=== PATIENT | male | born 1950 | race Caucasian/White ===

== ENCOUNTER 2019-04-03 17:10 | Inpatient (IN) | payer BC, MEDICARE ==
--- NOTE | 2019-04-03 17:33 | ED ---
Complex/Multi-Sys Presentation - HPI Summary HPI Summary: This pt is a 69 y/o male presenting to [facility] for low hemoglobin level today. Pt reports he had blood work done as an outpatient today ordered by Dr. Vegas in [place]. He has been under Dr. Vegas's care for 25 years now. He notes he has been feeling SOB, lightheaded, dizzy. Pt states he has had these symptoms become steadily worse over the past several months. He reports melena for the past couple of weeks, swelling in LE, constipation, urinary frequency. Pt notes he has been sleeping in a chair for a couple of months now. Denies chest pain/pressure/tightness. Denies fever, chills, erythema of eyes, sore throat, cough, abd pain, nausea, vomiting, dysuria, hematuria, myalgia, rash. Pt notes she saw Dr. Vegas 2 weeks ago and was told his hemoglobin was low but not to the point where he would need a transfusion. He is on Xarelto and diuretics. Pt has a holter monitor. - History Of Current Complaint Chief Complaint: EDWeakness Time Seen by Provider: 04/03/19 17:27 Hx Obtained From: Patient Onset/Duration: Lasting Weeks, Still Present Timing: Weeks Severity Currently: Moderate Location: Negative Aggravating Factor(s): nothing Alleviating Factor(s): nothing Associated Signs And Symptoms: Positive: Dizziness, SOB, Melena, Other - POSITIVE: lightheadedness, constipation, leg swelling,. Negative: Cough, Chest Pain, Nausea, Vomiting, Diarrhea, Abdominal Pain, Fever - Allergies/Home Medications Allergies/Adverse Reactions: Allergies Allergy/AdvReac Type Severity Reaction Status Date / Time No Known Allergies Allergy Verified 11/27/13 14:28 Home Medications: Home Medications Aspirin EC TAB* [Ecotrin EC Low Dose 81 MG*] 81 mg PO DAILY 04/03/19 [History Confirmed 04/03/19] Cholecalciferol TAB* [Vitamin D TAB*] 2,000 units PO DAILY 04/03/19 [History Confirmed 04/03/19] Insulin GLARGINE(*) [Lantus(*)] 35 units SUBCUT BID 04/03/19 [History Confirmed 04/03/19] Insulin ISOPH/REG 70/30 (*) [HumuLIN 70/30 (*)] 35 units SUBCUT ONCE 04/03/19 [ History Confirmed 04/03/19] Insulin LISPRO* [HumaLOG*] 35 units SUBCUT BID 04/03/19 [History Confirmed 04/03] Levothyroxine TAB* [Synthroid TAB*] 200 mcg PO DAILY 04/03/19 [History Confirmed 04/03/19] [place]-3 Fatty Acids/Fish Oil [[place] 3] 1 cap PO DAILY 04/03/19 [History Confirmed 04/03/19] Potassium Chlor TAB* [Klor Con ER TAB*] 20 meq PO DAILY 04/03/19 [History Confirmed 04/03/19] Rivaroxaban TAB(*) [Xarelto 20 mg] 20 mg PO DAILY 04/03/19 [History Confirmed ] metFORMIN* [Glucophage 500 MG TAB *] 500 mg PO DAILY 04/03/19 [History Confirmed 04/03/19] PMH/Surg Hx/FS Hx/Imm Hx Endocrine/Hematology History: Reports: Hx Diabetes Cardiovascular History: Reports: Hx Hypertension, Other Cardiovascular Problems/ Disorders - PATIENT HAS HEART MONITOR, atrial flutter, heart murmur Respiratory History: Denies: Hx Asthma Infectious Disease History: No Infectious Disease History: Denies: Traveled Outside the [place] in Last 30 Days - Family History Known Family History: Positive: Hypertension - Social History Alcohol Use: None Substance Use Type: Reports: None Smoking Status (MU): Former Smoker Review of Systems Negative: Fever, Chills Negative: Erythema Negative: Sore Throat Negative: Chest Pain Positive: Shortness Of Breath. Negative: Cough Gastrointestinal: Other - POSITIVE: melena, constipation Negative: Abdominal Pain, Vomiting, Nausea Positive: frequency. Negative: dysuria, hematuria Positive: Edema - legs. Negative: Myalgia Negative: Rash Neurological: Other - POSITIVE: dizziness, lightheadedness All Other Systems Reviewed And Are Negative: Yes Physical Exam - Summary Physical Exam Summary: Constitutional: Well-developed, Well-nourished, Alert. (-) Distressed Skin: Warm, Dry. Skin discoloration from heating pad on his back. HENT: Normocephalic; Atraumatic Eyes: Conjunctiva normal Neck: Musculoskeletal ROM normal neck. (-) JVD, (-) Stridor, (-) Tracheal deviation Cardio: Rhythm regular, rate normal, Heart sounds normal; Intact distal pulses; The pedal pulses are 2+ and symmetric. Radial pulses are 2+ and symmetric. (-) Murmur Pulmonary/Chest wall: Patient is tachypneic. (-) Respiratory distress, (-) Wheezes, (-) Rales Abd: Soft, (-) tenderness, (-) Distension, (-) Guarding, (-) Rebound Rectal exam: Lincoln Gillette RN, present as marketing performance analyst. Melena. Musculoskeletal: (-) Edema Lymph: (-) Cervical adenopathy Neuro: Alert, Oriented x3 Psych: Mood and affect Normal Triage Information Reviewed: Yes Vital Signs On Initial Exam: Initial Vitals Temp Pulse Resp BP Pulse Ox 98.4 F 67 18 141/71 97 04/03/19 17:12 04/03/19 17:12 04/03/19 17:12 04/03/19 17:12 04/03/19 17:12 Vital Signs Reviewed: Yes Diagnostics - Vital Signs Vital Signs Temp Pulse Resp BP Pulse Ox 04/03/19 17:12 98.4 F 67 18 141/71 97 - Laboratory Result Diagrams: 04/03/19 17:39 04/03/19 17:39 Lab Statement: Any lab studies that have been ordered have been reviewed, and results considered in the medical decision making process. - Radiology Chest XR Radiology Interpretation Completed By: Radiologist Summary of Radiographic Findings: IMPRESSION: Suggestion of mild pulmonary vascular congestion. Dr. Bauer has reviewed this report. - EKG 17:32 Cardiac Rate: NL - at 68 bpm EKG Rhythm: Sinus Rhythm Summary of EKG Findings: RBBB. No STEMI. Complex Multi-Symp Course/Dx Assessment/Plan: Pt is a 69 y/o male, with hx of aflutter on xarelto, presenting to [facility] for low hemoglobin level resulted after outpt blood work today. He notes he has been feeling SOB, lightheaded, dizzy. Pt states he has had these symptoms become steadily worse over the past several months. He reports melena for the past couple of weeks, swelling in LE, constipation, urinary frequency. Pt notes he has been sleeping in a chair for a couple of months now. Blood work done as an outpatient at 12:00 today shows hemaglobin of 6.3, hematocrit of 19, potassium of 5.3, BUN of 45, creatinine of 2.06, glucose of 201, troponin of 0.04, BNP of 1290. Test results in the ED shows hemoglobin of 6.6, hematocrit of 19, potassium of 5.1, BUN is 47, creatinine of 2.14, troponin of 0.04. Stool occult blood is positive. Chest XR impression: Suggestion of mild pulmonary vascular congestion. In the ED course the pt received lasix, protonix, 2 bags of packed red blood cells. Discussed with TOBIAS Ricketts, who will consult for the pt. Discussed pt care with Dr. Anne, hospitalist, who accepted the pt for admission. - Diagnoses Provider Diagnoses: Symptomatic anemia, Upper GI bleed - Physician Notifications Discussed Care Of Patient With: Julio Cesar Diego Time Discussed With Above Provider: 17:47 Instructed by Provider To: Other - Discussed with TOBIAS Ricketts, who will consult for the pt. [17:50] Discussed pt care with Dr. Anne, hospitalist, who accepted the pt for admission. - Critical Care Time Critical Care Time: 30-74 min Discharge - Sign-Out/Discharge Documenting (check all that apply): Patient Departure - Admit to [facility] Patient Received Moderate/Deep Sedation with Procedure: No - Discharge Plan Condition: Stable Disposition: ADMITTED TO [facility] Referrals: Kayla Taveras MD [Primary Care Provider] - - Attestation Statements Document Initiated by Scribe: Yes Documenting Scribe: Marlyn Ying Provider For Whom Scribe is Documenting (Include Credential): Guy Bauer MD Scribe Attestation: Marlyn Falk, scribed for Guy Bauer MD on 04/03/19 at 2024. Status of Scribe Document: Ready
[2019-04-03] MEDS ORDERED: Pantoprazole* 80 mg IN NS 80 MG/250 ML BAG IV ONE (17:46)
[2019-04-03] MEDS ORDERED: Pantoprazole IV* 40 MG IV ONE (17:46)
[2019-04-03] MEDS ORDERED: Furosemide IV* 10 MG/ML VIAL (40 MG) IV SLOW PU ONE (17:49)
[2019-04-03 18:04] LABS: ABS Eosinophils 0.1 10^3/ul (0-0.6); ABS Lymphocytes 1.5 10^3/ul (1.0-4.8); ABS Monocytes 0.6 10^3/ul (0-0.8); ABS Neutrophils 3.6 10^3/ul (1.5-7.7); Eosinophil % 2.5 %; Hematocrit 19 % (42-52); Hemoglobin 6.6 g/dL (14.0-18.0); Lymphocyte % 25.2 %; Mean Corpuscular HGB Conc 34 g/dL (31-36); Mean Corpuscular Hemoglobin 30 pg (27-31); Mean Corpuscular Volume 87 fL (80-94); Mean Platelet Volume 8.3 fL (7.4-10.4); Nucleated Red Blood Cells % 0.1; Platelet Count 186 10^3/uL (150-450); Red Blood Count 2.22 10^6 /uL (4.18-5.48); Red Cell Distribution Width 18 % (10-15); White Blood Count 5.9 10^3/uL (3.5-10.8)
[2019-04-03 18:10] LABS: ALT 14 U/L (7-52); AST 13 U/L (13-39); Albumin 4.2 g/dL (3.2-5.2); Albumin/Globulin Ratio 1.7 (1-3); Alkaline Phosphatase 71 U/L (34-104); Blood Urea Nitrogen 47 mg/dL (6-24); CO2 Carbon Dioxide 24 mmol/L (22-32); Calcium 9.1 mg/dL (8.6-10.3); Chloride 109 mmol/L (101-111); EGFR Non-African American 30.6 (>60); Globulin 2.5 g/dL (2-4); Glucose 138 mg/dL (70-100); Sodium 139 mmol/L (135-145); Total Protein 6.7 g/dL (6.4-8.9)
[2019-04-03 18:14] LABS: Anion Gap 6 mmol/L (2-11); Potassium 5.1 mmol/L (3.5-5.0); Troponin I 0.04 ng/mL (<0.04)
--- OUTSIDE RECORDS SUMMARY | 2019-04-03 19:03 | XMS REPORT | Continuity of Care Document ---
:1950 External Reference #:[id number] Author Name Gina Dunne Care Team Providers Name Role Phone Kayla Taveras M.D. Primary Care Physician Unavailable Payers Date Identification Numbers Payment Provider Subscriber Policy Number: [id number] BS [employer]ets Brock Galloway [place] PayID: [id number] [address] [address] [place] [address] Effective: 2009 Policy Number: [id number] [employer]ets Brock Galloway [place] Expires: 2012 PayID: [id number] [address] [address] [place] [address] Problems Active Problems Provider Date Type 2 diabetes mellitus Sharmila Bojorquez M.D. Onset: 11/01/2011 Benign essential hypertension Sharmila Bojorquez M.D. Onset: 11/01/2011 Hypothyroidism Sharmila Bojorquez M.D. Onset: 11/01/2011 Social History Type Date Description Comments Sex Unknown Tobacco Use Start: Unknown End: Unknown Patient is a former smoker Smoking Status Reviewed: 03/27/19 Patient is a former smoker Allergies, Adverse Reactions, Alerts Description No Known Drug Allergies Medications Active Medications SIG Qnty Indications Ordering Provider Date Xarelto 1 by mouth Unknown 20mg Tablets every day Carvedilol 1 tab by mouth Unknown 25mg Tablets twice a day Vitamin D2 take 50,000 Unknown 2000Unit units once a Tablets week Torsemide 60tabs Unknown 20mg Tablets Klor-Con 2 po qd 30units Unknown 20Meq Packet Lantus 35 units Am and 6Vials Unknown 100Unit/ML PM Solution Novolog 35 U sc once a 1Bottle Unknown Solution day Multi Vitamin Mens 1 po qd Unknown Tablets Aspirin 1 po qd Unknown 81mg Tablets Atorvastatin Calcium 1 po qd 30tabs Unknown 40mg Tablets Metformin HCL 1 po bid 60tabs Unknown 500mg Tablets Levoxyl .2MG Unknown Ramipril 1 po bid 30caps Unknown 10mg Capsules History Medications Lovaza 1gm 1 po qd 180caps Unknown - 03/26 Capsules Atenolol 50mg 1 po qd 90tabs Unknown - Tablets Amlodipine Besylate 1 po qd 30tabs Unknown - 03/26/2019 10mg Tablets Hydrochlorothiazide qam Unknown - 08/07/2013 50mg Tablets Immunizations CPT Code Status Date Vaccine Lot # [id number] Given 08/07/2013 Zoster (Zostavax) [id number] Vital Signs Date Vital Result Comment 03/27/2019 8:32am Height 71.75 inches 5'11.75" Weight 263.50 lb Heart Rate 70 /min BP Systolic 110 mmHg BP Diastolic 50 mmHg Body Temperature 97.8 F O2 % BldC Oximetry 98 % BMI (Body Mass Index) 36.0 kg/m2 08/07/2013 11:03am Weight 252.00 lb Heart Rate 73 /min BP Systolic Sitting 142 mmHg BP Diastolic Sitting 72 mmHg 11/01/2011 1:55pm Height 72.50 inches 6'0.50" Weight 245.00 lb Heart Rate 60 /min BP Systolic Sitting 134 mmHg BP Diastolic Sitting 60 mmHg BMI (Body Mass Index) 32.8 kg/m2 Results Test Date Facility Test Result H/L Range Note Surgical 12/15/2013 [facility] S RUN DATE: [address] 12/16/ <[place] [address] NOTE> [phone] Laboratory test 09/18/2013 [facility] Blood Urea 29 mg/dL High 6-[address] [place] [address] [phone] Creatinine 09/18/2013 [facility] Creatinine 1.10 mg/dL 0.50- 1.[address] [place] [address] [phone] Egfr Non- 67.2 >60 Egfr 86.4 >60 2 Laboratory test 09/18/2013 [facility] PSA Diagnostic 1.041 ng/ mL 0-4.0 [address] [place] [address] [phone] Creatinine 09/18/2013 [facility] Urine Random 92.1 mg/dL Clearance [address] [place] [address] [phone] Creatinine 1.2 mg/dL 0.5-1.4 Creatinine Clearance 125 mL/min 97-137 Urine Collection Time 24 Urine Total Volume 2350 mL Total Protein 24HR 09/18/2013 [facility] Urine Random Total 58 mg/dL Urine [address] [address] [phone] Urine Total Protein/24HR 1363 mg/24Hr High 0-165 Basic Metabolic Panel 03/19/2013 [facility] Sodium 138 mmol/L 133-145 [address] [place] [address] [phone] Potassium 3.9 mmol/L 3.5-5.0 Chloride 101 mmol/L 101-111 Co2 Carbon Dioxide 31.0 mmol/L 22-32 Anion Gap 6.0 mmol/L 2-11 Glucose 259 mg/dL High 70-100 Blood Urea Nitrogen 24 mg/dL 6-24 Creatinine 1.20 mg/dL 0.50-1.40 BUN/Creatinine Ratio 20.0 8-20 Calcium 9.6 mg/dL 8.1-9.9 Egfr Non- 60.8 >60 Egfr 78.1 >60 4 Basic Metabolic Panel 11/12/2012 [facility] Sodium 139 mmol/L 133-[address] [place] [address] [phone] Potassium 3.7 mmol/L 3.5-5.0 Chloride 101 mmol/L 101-111 Co2 Carbon Dioxide 33.0 mmol/L High 22-32 Anion Gap 5.0 mmol/L 2-11 Glucose 147 mg/dL High 70-100 Blood Urea Nitrogen 22 mg/dL 6-24 Creatinine 1.00 mg/dL 0.50-1.40 BUN/Creatinine Ratio 22.0 High 8-20 Calcium 9.3 mg/dL 8.1-9.9 Egfr Non- 75.2 >60 Egfr 96.7 >60 5 Laboratory test 02/05/2012 [facility] Thyroxine Free 1.10 ng/dL 0.61-1.24 finding [facility] [place] [address] [phone] TSH 3.37 MIU/ML 0.34-5.60 Laboratory test finding 11/01/2011 [facility] PSA 0.94 NG/ML 0-4 6 [facility] [place] [address] [phone] 1 RUN DATE: 12/16/13 [facility] LAB LIVE PAGE 1 RUN TIME: 4920 [facility] [address] [place], [place] [address] Specimen Inquiry Name: BROCK BOBBY : [address]: Julio Cesar Diego MD Acct: [id number] Unit: [id number] AGE: 63 Location: ENDO Re12/15/13 SEX: M Status: REG REF SPEC: [id number] SHAMIKA: 12/15/13- SUBM DR: Julio Cesar Diego MD REQ: [id number] RECD: 12/15/13-1420 STATUS: ROHITH LOWE DR: Sharmila Bojorquez MD _ ORDERED: LEVEL IV FINAL DIAGNOSIS Colon, rectum, proximal at 15 cm., biopsy: Hyperplastic polyp. CLINICAL HISTORY Constipation for screening colonoscopy. No symptoms, insulin dependent diabetes mellitus. Abdomen negative, rectal negative. POST-OPERATIVE DIAGNOSIS Screening colonoscopy to cecum, prep poor, seeds, sludge. 1. Rectosig polyp, follow up in three years. GROSS DESCRIPTION The specimen is received in formalin labeled Brock Bobby, Proximal Rectum Polyp at 15 cm. and consists of a 0.5 x 0.4 x 0.3 cm. hernández-white, polypoid, soft tissue fragment. Submitted entirely, one cassette. Signed (signature on file) Saran Polk MD [id number] END OF REPORT * ML=Testing performed at Main Lab DEPARTMENT OF PATHOLOGY, [address] [place] [address] Saran Polk M.D. Director [facility] Permit #[id number] 2 Because ethnic data is not always readily available, this report includes an eGFR for both -Americans and non- Americans. The National Kidney Disease Education Program (NKDEP) does not endorse the use of the MDRD equation for patients that are not between the ages of 18 and 70, are , have extremes of body size, muscle mass, or nutritional status, or are non- or non-. According to the National Kidney Foundation, irrespective of diagnosis, the stage of the disease is based on the level of kidney function: Stage Description GFR(mL/min/1.73 m(2)) 1 Kidney damage with normal or decreased GFR 90 2 Kidney damage with mild decrease in GFR 60-89 3 Moderate decrease in GFR 30-59 4 Severe decrease in GFR 15-29 5 Kidney failure <15 (or dialysis) 3 Serum levels of PSA measured using the [employer] [place] DXI Hybritech immunoassay should not be interpreted as absolute evidence of the presence or absence of disease. The PSA value should be used in conjunction with other pertinent clinical diagnostic procedures. The values obtained with different assay methods or kits cannot be used interchangeably. 4 Because ethnic data is not always readily available, this report includes an eGFR for both -Americans and non- Americans. The National Kidney Disease Education Program (NKDEP) does not endorse the use of the MDRD equation for patients that are not between the ages of 18 and 70, are , have extremes of body size, muscle mass, or nutritional status, or are non- or non-. According to the National Kidney Foundation, irrespective of diagnosis, the stage of the disease is based on the level of kidney function: Stage Description GFR(mL/min/1.73 m(2)) 1 Kidney damage with normal or decreased GFR 90 2 Kidney damage with mild decrease in GFR 60-89 3 Moderate decrease in GFR 30-59 4 Severe decrease in GFR 15-29 5 Kidney failure <15 (or dialysis) 5 Because ethnic data is not always readily available, this report includes an eGFR for both -Americans and non- Americans. The National Kidney Disease Education Program (NKDEP) does not endorse the use of the MDRD equation for patients that are not between the ages of 18 and 70, are , have extremes of body size, muscle mass, or nutritional status, or are non- or non-. According to the National Kidney Foundation, irrespective of diagnosis, the stage of the disease is based on the level of kidney function: Stage Description GFR(mL/min/1.73 m(2)) 1 Kidney damage with normal or decreased GFR 90 2 Kidney damage with mild decrease in GFR 60-89 3 Moderate decrease in GFR 30-59 4 Severe decrease in GFR 15-29 5 Kidney failure <15 (or dialysis) 6 * SERUM LEVELS OF PSA MEASURED USING THE RIRI [employer] ACCESS HYBRITECH IMMUNOASSAY SHOULD NOT BE INTERPRETED ABSOLUTE EVIDENCE OF THE PRESENCE OR ABSENCE OF DISEASE. THE PSA VALUE SHOULD BE USED IN CONJUNCTION WITH OTHER PERTINENT CLINICAL DIAGNOSTIC PROCEDURES. The values obtained with different assay methods or kits cannot be used interchangeably. Procedures Date Code Description Status 12/15/2013 54098133 Colonoscopy Completed Encounters Type Date Location Provider Dx Diagnosis Office Visit 08/07/2013 [facility] Sharmila Bojorquez, V76.41 Screening 11:00a Merary Chu M.D. Malignant Neoplasm Rectum V76.44 Screening For Malig Ludwin Prostate V04.89 Need For Prophylactic Vaccination & Inoculation Other Virus Office Visit 11/01/2011 2:00p [facility] Sharmila V72.81 Examination Merary Bojorquez M.D. [facility] Cardiovascular 250.00 Diabetes Mellitus W/O Compl Type II Or Unspec Controlled 401.1 Hypertension Benign 244.9 Hypothyroidism Other Unspec V76.44 Screening For Malig Ludwin Prostate Plan of Treatment Future Appointment(s):07/13/2019 2:00 pm - Kayla Taveras [facility] at [facility] 11:20 am - [facility] - Kayla Taveras MDZ00.01 Encounter for general adult medical examination with abnormal findingsComments:You are due for colon cancer screening. To that effect, I have ordered the appropriate tests or referralsYour cholesterol profile and other labs are due, so please have records forward to us. Rememberto wear sunscreen and see your dentist regularly.For optimum health, I recommend some form of regular exercise and integrating a lot of plant-based foods into your daily diet.Z12.11 Encounter for screening for malignant neoplasm of colonReferral:Julio Cesar Diego MD, IwlfaaehhcilqdqlQ85.0 Localized bafzoW99.9 Hypertensive chronic kidney disease with stage 1 through stage 4 chronic kidney disease, or unspecified chronic kidney qqvumzkL85.42 Type 2 diabetes mellitus with diabetic polyneuropathyFollow up:3 months, 20 minR18.8 Other ascitesNew Xrays:US Abdomen Complete, Ordered: 03/27/19R06.02 Shortness of breathFollow up:1 mo Goals 03/27/2019 - Kayla Taveras MDE11.42 Type 2 diabetes mellitus with diabetic polyneuropathyGoal Hemoglobin A1c is less than 7.0% in ages 18-74 Goal Hemoglobin A1c is between 7.0% and 8.0% in age over 75 Goal Blood pressure is less than 130/85. Cholesterol should be lowered by a high or moderate-dose statin.
--- OUTSIDE RECORDS SUMMARY | 2019-04-03 19:03 | XMS REPORT | Continuity of Care Document ---
:1950 External Reference #:[id number] Author Name Gina Dunne Care Team Providers Name Role Phone Kayla Taveras M.D. Primary Care Physician Unavailable Payers Date Identification Numbers Payment Provider Subscriber Policy Number: [id number] [employer]ets Brock Galloway [place] PayID: [id number] [address] [address] YUL[place]SA Myers [address] Effective: 2009 Policy Number: [id number] [employer] Brock Galloway [place] Expires: 2012 PayID: [id number] [address] [address] YULISSA Myers [address] Problems Active Problems Provider Date Type 2 [...] CPT Code Status Date Vaccine Lot # [id number] Given 08/07/2013 Zoster (Zostavax) [id number] Vital Signs Date Vital Result Comment 03/27/2019 [...] Test Result H/L Range Note Surgical 12/15/2013 [facility] S RUN DATE: [address] 12/16/ <[place] [address] NOTE> [phone] Laboratory test 09/18/2013 [facility] Blood Urea 29 mg/dL High 6-[address] [place] [address] [phone] Creatinine 09/18/2013 [facility] Creatinine 1.10 mg/dL 0.50- 1.[address] [place] [address] [phone] Egfr Non- 67.2 >60 Egfr 86.4 >60 2 Laboratory test 09/18/2013 [facility] PSA Diagnostic 1.041 ng/ mL 0-4.0 [address] [place] [address] [phone] Creatinine 09/18/2013 [facility] Urine Random 92.1 mg/dL Clearance [address] [place] [address] [phone] Creatinine 1.2 mg/dL 0.5-1.4 Creatinine Clearance 125 mL/min 97-137 Urine Collection Time 24 Urine Total Volume 2350 mL Total Protein 24HR 09/18/2013 [facility] Urine Random Total 58 mg/dL Urine [address] [place] [address] [phone] Urine Total Protein/24HR 1363 mg/24Hr High 0-165 Basic Metabolic Panel 03/19/2013 [facility] Sodium 138 mmol/L 133-145 [address] [place] [address] [phone] Potassium 3.9 mmol/L 3.5-5.0 Chloride 101 mmol/L 101-111 Co2 Carbon Dioxide 31.0 mmol/L 22-32 Anion Gap 6.0 mmol/L 2-11 Glucose 259 mg/dL High 70-100 Blood Urea Nitrogen 24 mg/dL 6-24 Creatinine 1.20 mg/dL 0.50-1.40 BUN/Creatinine Ratio 20.0 8-20 Calcium 9.6 mg/dL 8.1-9.9 Egfr Non- 60.8 >60 Egfr 78.1 >60 4 Basic Metabolic Panel 11/12/2012 [facility] Sodium 139 mmol/L 133-[address] [place] [address] [phone] Potassium 3.7 mmol/L 3.5-5.0 Chloride 101 mmol/L 101-111 Co2 Carbon Dioxide 33.0 mmol/L High 22-32 Anion Gap 5.0 mmol/L 2-11 Glucose 147 mg/dL High 70-100 Blood Urea Nitrogen 22 mg/dL 6-24 Creatinine 1.00 mg/dL 0.50-1.40 BUN/Creatinine Ratio 22.0 High 8-20 Calcium 9.3 mg/dL 8.1-9.9 Egfr Non- 75.2 >60 Egfr 96.7 >60 5 Laboratory test 02/05/2012 [facility] Thyroxine Free 1.10 ng/dL 0.61-1.[address] [facility] [place] [address] [phone] TSH 3.37 MIU/ML 0.34-5.60 Laboratory test finding 11/01/2011 [facility] PSA 0.94 NG/ML 0-[address] [facility] [place] [address] [phone] 1 RUN DATE: 12/16/13 [facility] LAB LIVE PAGE 1 RUN TIME: [address] [facility] [employer] [place], [place] [address] Specimen Inquiry Name: BROCK BOBBY : [address]: Julio Cesar Diego MD Acct: [id number] Unit: [id number] AGE: 63 Location: ENDO Re12/15/13 SEX: M Status: REG REF SPEC: [id number] SHAMIKA: 12/15/13- SUBM DR: Julio Cesar Diego MD REQ: [id number] RECD: 12/15/13-1420 STATUS: ROHITH LOWE DR: Sharmila [...] performed at Main Lab DEPARTMENT OF PATHOLOGY, [address] [place] [address] Saran Polk M.D. Director [facility] Permit #[id number] 2 Because ethnic data is not always [...] levels of PSA measured using the Riri [employer] DXI Hybritech immunoassay should not be interpreted [...] LEVELS OF PSA MEASURED USING THE [employer] ACCESS HYBRITECH IMMUNOASSAY SHOULD NOT BE INTERPRETED ABSOLUTE EVIDENCE OF THE PRESENCE OR ABSENCE OF DISEASE. THE PSA VALUE SHOULD BE USED IN CONJUNCTION WITH OTHER PERTINENT CLINICAL DIAGNOSTIC PROCEDURES. The values obtained with different assay methods or kits cannot be used interchangeably. Procedures Date Code Description Status 12/15/2013 23211602 Colonoscopy Completed Encounters Type Date Location Provider Dx Diagnosis Office Visit 08/07/2013 [facility] Internal Sharmila Bojorquez, V76.41 Screening 11:00a Merary Chu M.D. Malignant Neoplasm Rectum V76.44 Screening For Malig Ludwin Prostate V04.89 Need For Prophylactic Vaccination & Inoculation Other Virus Office Visit 11/01/2011 2:00p [facility] Internal Sharmila V72.81 Examination Merary Bojorquez M.D. [facility] 250.00 Diabetes Mellitus W/O Compl Type II Or Unspec Controlled 401.1 Hypertension Benign 244.9 Hypothyroidism Other Unspec V76.44 Screening For Malig Ludwin Prostate Plan of Treatment Future Appointment(s):07/13/2019 2:00 pm - Kayla Taveras MD at [facility] 11:20 am - Kayla Taveras MD at [facility]2019 - Kayla Taveras MDZ00.01 Encounter for [...] malignant neoplasm of colonReferral:Julio Cesar Diego MD, AwzapabidpfjcqcxC44.0 Localized ffnijS30.9 Hypertensive chronic kidney disease with stage 1 through stage 4 chronic kidney disease, or unspecified chronic kidney cztugvaL02.42 Type 2 diabetes mellitus with diabetic polyneuropathyFollow [...]
[2019-04-03] MEDS ORDERED: Acetaminophen TAB* 325 MG PO PRN (21:01)
[2019-04-03 21:44] LABS: % Iron Saturation 5 % (15-55); Iron 24 ug/dL (50-212); Total Iron Binding Capacity 483 mcg/dL (250-450); Transferrin 345 mg/dL (203-362)
[2019-04-03 22:07] LABS: Ferritin 11.6 ng/mL (24-336)
[2019-04-03 22:10] LABS: Folate 8.12 ng/mL (>3.99)
[2019-04-03] MEDS ORDERED: Insulin GLARGINE(*) 1 UNITS UNIT SUBCUT ONE (23:00)
[2019-04-03 23:06] LABS: Troponin I 0.04 ng/mL (<0.04)
--- NOTE | 2019-04-03 23:08 | HP ---
CC: Dr. Kayla Taveras; Dr. Julio Cesar Diego ADMISSION HISTORY AND PHYSICAL: DATE OF ADMISSION: 04/03/19 PRIMARY CARE PHYSICIAN: Dr. Kayla Taveras. GI PHYSICIAN: Dr. Julio Cesar Diego. CHIEF COMPLAINT: Abnormal hemoglobin, sent for possible transfusion. HISTORY OF PRESENT ILLNESS: This is a 69-year-old male with a past medical history of Aflutter, on X arelto, diabetes, hypertension, hyperlipidemia, hypothyroidism, chronic kidney disease, stage 3/4, wi th GFR around 30, who was sent from his java security architect's office, Dr. Vegas, in [place], to follow up in the ER for low hemoglobin. The patient's main symptom is that he has been having shortness of breath since last June, in 2017, and has been following up with Dr. Vegas, his java security architect, on and off for this. However, there was an acute change in his shortness of breath in the last 2 wee ks to 4 weeks and he also noticed that for the last 2 weeks he has been having dark-colored stools an d has been feeling lightheaded and dizzy. He had blood work done in December for his shortness of breath. At that time, he had an anemia with a hemoglobin of 10 and was otherwise doing well, but then today' s blood work suggested hemoglobin of 6.3, and was recommended by the java security architect to send him to the ER. The patient also stated that he has been having worsening lower extremity swelling and also feel s that his belly is a bit distended. He denies any nausea, vomiting, any chest pain. Some mild shor tness of breath, as mentioned, especially worse with exertion, and some mild cough, and has been feel ing cold and chilly, but no obvious fevers. He denies any other numbness, tingling or weakness. PAST MEDICAL HISTORY: As mentioned, diabetes, hypertension, hyperlipidemia, hypothyroidism, Aflutter , on Xarelto, history of rectosigmoid polyp removal, chronic kidney disease, stage 3/4, his GFR hover s just around 30. PAST SURGICAL HISTORY: He has had pyloric stenosis as a week-old for which he required abdomi nal surgery, history of knee cartilage repair, and bilateral cataract surgery. HOME MEDICATIONS: The patient is currently on: 1. Lispro 35 units subcutaneous b.i.d. 2. Humulin 70/30 mixture, 35 units in the evening. 3. Lantus 35 units subcutaneous b.i.d. 4. Fish oil 1 tablet oral daily. 5. Demadex 10 mg oral daily. 6. Aspirin 81 mg oral daily. 7. Xarelto 20 mg oral daily. 8. Metformin 500 mg oral daily. 9. Atorvastatin 40 mg oral daily. 10. Potassium chloride 20 mEq oral daily. 11. Ramipril 10 mg oral daily. 12. Coreg 25 mg p.o. b.i.d. 13. Vitamin D 2000 units p.o. daily. ALLERGIES: No known drug allergies. FAMILY HISTORY: Father at age 82, has had some heart disease. Mother is alive at age 97 and is otherwise healthy. Some of his brothers also suffered with pyloric stenosis as infants. SOCIAL HISTORY: The patient used to smoke cigar for about 5 years, but no other cigarette smoking. Denies any alcohol or drug use. 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 Lives with his and is a full code at t his point. REVIEW OF SYSTEMS: A 14-point review of systems did not reveal any new information other than what i s stated in the HPI. PHYSICAL EXAMINATION GENERAL: The patient is awake, alert, and oriented x3. He does not appear to be in any acute respir atory distress. VITAL SIGNS: In the ER, BP was noted to be 153/66, heart rate 62, respiration rate 23, saturating 10 0% on 2 L nasal cannula, temperature 98.4. HEAD AND NECK: Atraumatic, normocephalic. Bilateral pupils are reactive. Oral mucosa is moist. Ne ck supple. No jugular venous distention. LUNGS: The patient has bibasilar crackles. HEART: S1 and S2. Regular rate and rhythm. There is a systolic murmur heard. ABDOMEN: Obese, slightly distended, with some shifting dullness suggestive of possible mild ascites. EXTREMITIES: The patient has bilateral lower extremity chronic edema and skin changes secondary to c hronic edema, but no obvious erythema. DIAGNOSTIC STUDIES/LAB DATA: CBC shows hemoglobin of 6.6, hematocrit of 19, WBC and platelet count were within normal limits. Comprehensive metabolic panel shows potassium elevated at 5.2, BUN elevat ed at 47, creatinine 2.14, but this is his baseline, GFR was noted to be 30.6, random glucose was 138 , lactic acid normal at 1.0. LFTs were within normal limits. Troponin is minimally elevated at 0.04 . Stool occult was noted to be positive. Chest x-ray was read as pulmonary vascular congestion. EKG was showing sinus rhythm at 68 beats per minute with right bundle branch block with intraventricu lar conduction delay. No other ST elevation was noted. There was some T-wave inversion in the infer ior lead. IMPRESSION: This is a 69-year-old gentleman with multiple medical problems including type 2 diabetes , hypertension, hyperlipidemia, hypothyroidism, atrial flutter, and chronic kidney disease stage 3, h ere due to worsening anemia with Hemoccult being positive. ASSESSMENT AND PLAN: 1. Severe symptomatic anemia: Given his troponin leak and symptom of shortness of breath, the patie nt will receive 2 units of packed RBCs, as ordered in the ER. We will repeat hemoglobin post transfu betzy. His goal hemoglobin should be between 8 to 10 given his cardiac condition. We will keep the p atient n.p.o. and consult GI to evaluate the patient in the morning. Dr. Diego has already been no tified by the ER staff, who is his private tool inspector. 2. Slightly elevated troponin: As mentioned, we will transfuse. We will monitor serial troponin le araceli. 3. Congestive heart failure with chest x-ray suggestive of pulmonary vascular congestion. The patie nt already given Lasix in between transfusion. We will monitor for now. We will hold home diuretics at this point as the patient is n.p.o. past midnight. 4. History of diabetes: We will hold his short-acting insulins and start the patient on fingerstick monitoring q.4 hours for now and then, once he is back on his diet, we will consider a.c. and h.s. w ith a sliding scale during that point. 5. History of hypertension: We will hold his torsemide and ramipril given the abnormal creatinine a nd the patient being n.p.o., but continue his Coreg and monitor his blood pressures. 6. History of hyperlipidemia: Continue his statins. 7. History of hypothyroidism: Continue his levothyroxine. 8. History of atrial flutter: We will hold both his aspirin and Xarelto, as mentioned, for his anem ia. 9. History of chronic kidney disease, stage 3/4: We will monitor his creatinine. 10. DVT prophylaxis with sequential compression device. [id number]/[facility] #: [id number]
[2019-04-04 02:04] LABS: Troponin I 0.04 ng/mL (<0.04)
[2019-04-04 05:43] LABS: ABS Eosinophils 0.2 10^3/ul (0-0.6); ABS Lymphocytes 1.6 10^3/ul (1.0-4.8); ABS Monocytes 0.6 10^3/ul (0-0.8); Eosinophil % 2.5 %; Hematocrit 23 % (42-52); Hemoglobin 7.5 g/dL (14.0-18.0); Mean Corpuscular HGB Conc 33 g/dL (31-36); Mean Corpuscular Hemoglobin 28 pg (27-31); Mean Corpuscular Volume 86 fL (80-94); Mean Platelet Volume 8.2 fL (7.4-10.4); Nucleated Red Blood Cells % 0.1; Platelet Count 175 10^3/uL (150-450); Red Blood Count 2.66 10^6 /uL (4.18-5.48); Red Cell Distribution Width 17 % (10-15); White Blood Count 6.3 10^3/uL (3.5-10.8)
[2019-04-04 05:49] LABS: Troponin I 0.04 ng/mL (<0.04)
[2019-04-04] MEDS: Levothyroxine TAB* 100 MCG TAB PO SCH (05:53)
[2019-04-04 05:55] LABS: ALT 13 U/L (7-52); AST 14 U/L (13-39); Albumin 4.1 g/dL (3.2-5.2); Albumin/Globulin Ratio 1.6 (1-3); Alkaline Phosphatase 67 U/L (34-104); Anion Gap 7 mmol/L (2-11); BUN/Creatinine Ratio 21.4 (8-20); Blood Urea Nitrogen 43 mg/dL (6-24); CO2 Carbon Dioxide 24 mmol/L (22-32); Calcium 8.9 mg/dL (8.6-10.3); Chloride 110 mmol/L (101-111); EGFR African American 39.8 (>60); EGFR Non-African American 32.9 (>60); Globulin 2.5 g/dL (2-4); Glucose 129 mg/dL (70-100); Potassium 4.3 mmol/L (3.5-5.0); Sodium 141 mmol/L (135-145); Total Protein 6.6 g/dL (6.4-8.9)
[2019-04-04] MEDS ORDERED: Furosemide IV* 10 MG/ML VIAL (40 MG) IV SLOW PU ONE (08:09)
[2019-04-04] MEDS ORDERED: Torsemide TAB 10 MG PO SCH (09:00)
[2019-04-04] MEDS ORDERED: Potassium Chlor TAB* 20 MEQ TAB.ER PO SCH (09:00)
[2019-04-04] MEDS: Cholecalciferol TAB* 1000 UNITS PO SCH (09:22)
[2019-04-04] MEDS: Insulin GLARGINE(*) 1 UNITS UNIT SUBCUT SCH ×2 (09:23→21:02)
[2019-04-04] MEDS: Carvedilol TAB* 25 MG PO SCH ×2 (09:23→21:02)
[2019-04-04] MEDS: Pantoprazole IV* 40 MG IV SCH ×2 (09:23→21:34)
[2019-04-04] MEDS: CMCS: OMEGA-3 FATTY ACIDS (NF) 1,000 MG CAP PO SCH (09:32)
[2019-04-04] MEDS ORDERED: Midazolam* 1 MG/ML 10 ML VIAL (10 MG) ONE (10:20)
[2019-04-04] MEDS ORDERED: fentaNYL* 50 MCG/ML 2 ML VIAL (100 MCG VIAL) ONE (10:20)
[2019-04-04 12:24] LABS: Hematocrit 25 % (42-52); Hemoglobin 8.1 g/dL (14.0-18.0)
[2019-04-04 12:30] LABS: INR 1.65 (0.82-1.09)
--- NOTE | 2019-04-04 13:18 | CONS ---
GASTROENTEROLOGY CONSULT: DATE: 04/04/19 REASON FOR CONSULTATION: Anemia with intermittently dark stool in a man on Xarelto for atrial arrhythmias, prescribed by his [place] production sampler Dr. Johnathan Vegas in January 2018. HISTORY: This 69-year-old man, cena of a large dairy farm in [facility], has been hypertensive and diabetic for many years. Most of his care has been directed by production sampler, Dr. Johnathan Vegas in [place] and the [facility] there. He has been on insulin for many years. He actually does not have any A1c in the [facility] database, though did have a 24-hour urine in August 2013 showing creatinine clearance of 125 and a 24-hour protein of 1363 mg. Recently, he has been feeling more tired and fatigued and Dr. Vegas obtained a hemoglobin of 6.3 and referred him to the emergency room for admission. He has been transfused 3 units and admitted to the ICU. He states that a couple of weeks ago his stool was dark for a few days. He has not had any overt bleeding. He denies any history of gastrointestinal symptoms or problems other than constipation. At home, he takes aspirin 81 mg and was taking Xarelto since last January 2018. He has never had a thromboembolic event. He has never actually had a coronary issue. He has had 3 cardiac catheterizations, last one in 2010 and all had been negative per the patient's report. He was being followed at [facility] by Dr. Sharmila Bojorquez but when she retired 3 years ago, he did not register with anyone until seeing Dr. Kayla Taveras last week. PAST MEDICAL HISTORY: 1. Adult-onset diabetes - secondary to obesity, on insulin many years. Cared for at the [facility] in [place]. 2. Morbid obesity. Weight 251 in September 2013 and now 261. 3. History of pyloric stenosis - operated during infancy. 4. Chronic low back pain. He had been a patient [facility] sporadically for many years. 5. Diabetic renal disease - proteinuria. He had a renal consult in [place] in 2015 and stopped taking ibuprofen at that time. He admits at times in the past he had been a very heavy user of ibuprofen. 6. Anemia - he states that for many many years he has been told he was anemic. His first hemoglobin in the current database September 2011 was 12.9, MCV of 88, and his supervisor rose grading Dr. Heriberto Wills was listed as ordering those labs which included haptoglobin of 52, vitamin B12 of 784, ferritin of 66 at that time. He is now iron deficient with saturation of 5%, ferritin 11.6, iron 24, TIBC 483, B12 of 300, and albumin of 4.1. 7. Atrial arrhythmias - cardioverted once MEDICATIONS: At home: 1. Levothyroxine 200. 2. Carvedilol 25 b.i.d. 3. Ramipril 10. 4. Torsemide 20. 5. Atorvastatin 40. 6. Xarelto 20. 7. Aspirin 81 mg. 8. Insulin twice a day. 9. Vitamin D. ALLERGIES: None to drugs. SOCIAL HISTORY: He is ,and operates a [employer] in [place], [place]. REVIEW OF SYSTEMS: He denies any history of heartburn, acid indigestion, sour stomach, CVA, TIA, syncope, seizures, CA, overt rectal bleeding. He did have a colonoscopy in November 2013 by me at [facility] where a polyp was removed that was hyperplastic at 15 cm. EXAM: He is a tired-appearing older man, substantially obese, sitting in a chair. HEENT exam is unremarkable. He has no adenopathy. His lungs are generally clear with some crackles at the bases. Heart sounds are irregular. His abdomen is obese with a well-healed epigastric scar. There is no masses or tenderness, but the exam is limited. Stool is occult blood positive. He has 1 + ankle edema. IMPRESSION: This 69-year-old man with longstanding diabetes and some evidence of renal disease who presents with iron-deficiency anemia after 14 months of Xarelto and aspirin treatment. He apparently has a background chronic anemia the exact contributing factors to are of unclear as the [place] records are not available. He was an NSAID user until 2015 though apparently never had any gastrointestinal signs during that time. He had a negative colonoscopy in 2013 which was viewed as a screening exam. He has had some dark stool and is heme + and the initial investigation will be upper endoscopy. Further GI w/u will depend on the results and following his hemoccults as the Hg is restored to over ten. [id number]/[facility] #: [id number] [facility]
[2019-04-04] MEDS ORDERED: Iron Sucrose* 200 MG in NS 0.9% 100 ML* 100 ML IVPB ONE (13:20)
--- NOTE | 2019-04-04 13:51 | PRO ---
DATE: 04/04/19 - ROOM #[id number] REFERRING PHYSICIAN: Kayla Taveras. * PROCEDURES: Upper gastrointestinal endoscopy and gastric biopsy for CLOtest and BiCap hemostasis, duodenal AVM - small 3 mm. INDICATION: This 69-year-old man with over 20 years of diabetes and recent atrial arrhythmias for which he was placed on Xarelto 14 months ago was admitted with severe microcytic anemia, hemoglobin 6.3, MCV 61. He has been transfused 3 units and given bolus pantoprazole 40 mg b.i.d. He has had no overt bleeding. Xarelto and baby aspirin had been held. Endoscopy was explained to the patient and his . ENDOSCOPIST: Dr. Diego. MEDICATIONS: Midazolam 5, fentanyl 25. FINDINGS: He is a substantially overweight older man in no overt distress. Positioned left side down and moderate sedation induced with sequential doses of medication. He tolerated the exam very well and remained in sinus rhythm throughout. ESOPHAGOGASTRODUODENOSCOPY: Larynx - Symmetric, limited views. Esophagus - Easily entered and the mucosa is normal in the upper, mid and lower esophagus. The EG junction is at 39. There is a small hiatal hernia. There are no erosions at the squamocolumnar junction or in the hernia itself. There was no fundic prolapse. Stomach - Generally normal mucosa in the cardia, fundus, body, and antrum. No erosions and no blood was seen. The antrum appeared normal. Duodenum - The pylorus and bulb just had some mild Nereida gland prominence, though there was no inflammation or erosive change. The second through fourth portions of the duodenum were normal and no blood was seen. During slow withdrawal, however, a small 3 to 4 mm AVM was noted in the distal second portion 3 o'clock orientation and it was BiCap-ed with 20 weber and obliterated. IMPRESSION: 1. Small hiatal hernia. 2. 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 3. Iron deficiency anemia - he has a very longstanding tendency towards anemia , he states, and the laboratory record shows September 2011 (Hg 12) studies ordered by his Denita slag dumper exploring that. More recently, however, he became frankly microcytic and that appears to have been during 14 months of Xarelto treatment. Presumably, low-dose aspirin predated that by quite some time. He is heme positive now. Prior Hemoccults are not seen and he recalls none. Further attempts to get past laboratory studies will be ongoing. 4. Atrial arrhythmias - details unclear, although he did have cardioversion in December 2018 in [place]. The arrhythmia was asymptomatic in 2018 and relative risk and burden between the 2 conditions remains to be defined. Addendum: Clotest negative [id number]/[facility] #: [id number] MTDD
--- NOTE | 2019-04-04 14:58 | PN ---
Subjective Date of Service: 04/04/19 Interval History: Patient this AM is feeling well. Patient has no SOB at rest and has not gotten up to see if he is SOB with exertion. Patient state he feels SOB laying flat. Patient denies dizziness, CP. Patient is urinating a lot. Patient denies any more BMs to assess for melena. Patient has had a dry cough for 1 week. Patient denies N/V, abdominal pain, F/C, productive cough, or other pain Family History: Unchanged from Admission Social History: Unchanged from Admission Past Medical History: Unchanged from Admission Objective Active Medications: Acetaminophen (Tylenol Tab*) 650 mg PO Q4H PRN PRN Reason: PAIN - MILD Atorvastatin Calcium (Lipitor*) 40 mg PO 1700 [facility] Carvedilol (Coreg Tab*) 25 mg PO BID [facility] Last Admin: 04/04/19 09:23 Dose: 25 mg Cholecalciferol (Vitamin D Tab*) 2,000 units PO DAILY [facility] Last Admin: 04/04/19 09:22 Dose: 2,000 units Fish Oil (Fish Oil (Nf)) 1,000 mg PO DAILY [facility] Last Admin: 04/04/19 09:32 Dose: 1,000 mg Furosemide (Lasix Iv*) 20 mg IV SLOW PU ONCE ONE Stop: 04/04/19 17:01 Insulin Glargine (Lantus(*)) 35 units SUBCUT BID [facility] Last Admin: 04/04/19 09:23 Dose: 35 units Levothyroxine Sodium (Synthroid Tab*) 200 mcg PO DAILY@0600 [facility] Last Admin: 04/04/19 05:53 Dose: 200 mcg Pantoprazole Sodium (Protonix Iv*) 40 mg IV Q12HR [facility] Last Admin: 04/04/19 09:23 Dose: 40 mg Torsemide (Torsemide) 20 mg PO DAILY [facility] Vital Signs - 8 hr 04/04/19 04/04/19 04/04/19 07:00 07:01 07:34 Temperature 98.7 F Pulse Rate 64 62 Respiratory 19 20 Rate Blood Pressure 138/58 (mmHg) O2 Sat by Pulse 97 98 Oximetry 04/04/19 04/04/19 04/04/19 08:00 08:57 09:00 Temperature Pulse Rate 60 60 63 Respiratory 17 18 18 Rate Blood Pressure 141/66 155/94 150/63 (mmHg) O2 Sat by Pulse 97 98 98 Oximetry 04/04/19 04/04/19 04/04/19 09:19 10:00 11:00 Temperature Pulse Rate 60 60 63 Respiratory 21 20 20 Rate Blood Pressure 149/66 153/70 147/74 (mmHg) O2 Sat by Pulse 98 99 97 Oximetry 04/04/19 04/04/19 04/04/19 11:55 12:00 12:15 Temperature Pulse Rate 61 60 Respiratory 20 21 23 Rate Blood Pressure 140/63 141/65 (mmHg) O2 Sat by Pulse 94 95 Oximetry 04/04/19 04/04/19 13:00 13:01 Temperature Pulse Rate 62 Respiratory 24 24 Rate Blood Pressure 130/94 (mmHg) O2 Sat by Pulse 98 Oximetry Oxygen Devices in Use Now: None Appearance: Patient is a 69yo male who appears stated age and is sitting in the bed in [facility]. Eyes: No Scleral Icterus, PERRLA Ears/Nose/Mouth/Throat: NL Teeth, Lips, Gums, Clear Oropharnyx, Mucous Membranes Moist Neck: NL Appearance and Movements; NL JVP, Trachea Midline Respiratory: Symmetrical Chest Expansion and Respiratory Effort, - - Crackles in B/L Lower lobes. Cardiovascular: RRR, - - 1+ B/L LE edema. Grade 3/6 ADRI at RUSB Abdominal: NL Sounds; No Tenderness; No Distention, No Hepatosplenomegaly Lymphatic: No Cervical Adenopathy Extremities: No Clubbing, Cyanosis Skin: No Rash or Ulcers Neurological: Alert and Oriented x 3, NL Sensation, NL Muscle Strength and Tone , - - CN II-XII intact. Result Diagrams: 04/04/19 12:15 04/04/19 05:05 Microbiology and Other Data: Microbiology 04/03/19 22:00 Nasal Screen MRSA (PCR) - Final Nasal Mrsa Not Detected 04/03/19 19:47 Stool Occult Blood (ISREAL) - Final Stool Assess/Plan/Problems-Billing Assessment: Patient is a 69yo male with a PMH for anemia, HFpEF, DM II, Aflutter, CKD, here with symptomatic anemia and HF exacerbation. Patient was found to have an intestinal AVM and is improving symptomatically with transfusions and diuresis. - Patient Problems (1) Anemia Current Visit: Yes Status: Acute Code(s): D64.9 - ANEMIA, UNSPECIFIED SNOMED Code(s): 164248147 Comment: - Highly symptomatic, likely driving CHF exacerbation. - Heme-postive stool, appreciate GI input and scope - Likely due to AVMs - S/P 3u PRBC - Supplement iron as well IV per GI - Goal of >8. (2) (HFpEF) heart failure with preserved ejection fraction Current Visit: Yes Status: Acute Code(s): I50.30 - UNSPECIFIED DIASTOLIC ( CONGESTIVE) HEART FAILURE SNOMED Code(s): 400734069 Comment: - Likely driven by anemia - Small amount of demand ischemia - Diuresis PRN - Strict I/O and daily weight. - Still markedly fluid overloaded. 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 (3) CKD (chronic kidney disease) Current Visit: Yes Status: Acute Code(s): N18.9 - CHRONIC KIDNEY DISEASE, UNSPECIFIED SNOMED Code(s): 171524725 Comment: - At known baseline (4) Atrial flutter Current Visit: Yes Status: Acute Code(s): I48.92 - UNSPECIFIED ATRIAL FLUTTER SNOMED Code(s): 1098422 Comment: - In Regular rhythm on exam and monitor - Hold Xarelto for GI Bleed (5) Diabetes mellitus Current Visit: Yes Status: Acute Code(s): E11.9 - TYPE 2 DIABETES MELLITUS WITHOUT COMPLICATIONS SNOMED Code(s): 08802655 Comment: - SSI and Glargine. - Worsening control with Resumption of diet. (6) Full code status Current Visit: Yes Status: Acute Code(s): Z78.9 - OTHER SPECIFIED HEALTH STATUS SNOMED Code(s): 288114478 (7) DVT prophylaxis Current Visit: Yes Status: Acute Code(s): Z29.9 - ENCOUNTER FOR PROPHYLACTIC MEASURES, UNSPECIFIED SNOMED Code(s): 851224067 Comment: - SCDs in setting of GI bleed. Status and Disposition: Inpatient
[2019-04-04 15:15] LABS: Urine Appearance Clear; Urine Bilirubin Negative (Negative); Urine Blood Negative (Negative); Urine Color Straw; Urine Glucose Negative (Negative); Urine Ketones Negative (Negative); Urine Nitrite Negative (Negative); Urine Protein Negative (Negative); Urine Specific Gravity 1.006 (1.010-1.030); Urine Urobilinogen Negative (Negative)
[2019-04-04] MEDS ORDERED: Furosemide IV* 10 MG/ML 2 ML VIAL (20 MG) IV SLOW PU ONE (17:00)
[2019-04-04] MEDS: Atorvastatin* 40 MG TAB PO SCH (17:03)
[2019-04-04] MEDS ORDERED: Dextrose 50% Syringe 50 ML* 25 GM/50 ML SYRINGE IV PUSH PRN (18:03)
[2019-04-04] MEDS: Insulin LISPRO* 1 UNITS UNIT SUBCUT SCH (21:03)
[2019-04-04 22:07] LABS: Hematocrit 25 % (42-52); Hemoglobin 8.4 g/dL (14.0-18.0)
[2019-04-05] MEDS: Levothyroxine TAB* 100 MCG TAB PO SCH (05:49)
[2019-04-05 07:29] LABS: Hematocrit 25 % (42-52); Hemoglobin 8.3 g/dL (14.0-18.0)
[2019-04-05] MEDS: Insulin LISPRO* 1 UNITS UNIT SUBCUT SCH ×3 (08:16→16:38)
[2019-04-05] MEDS: Pantoprazole IV* 40 MG IV SCH (08:31)
[2019-04-05] MEDS: Cholecalciferol TAB* 1000 UNITS PO SCH (08:34)
[2019-04-05] MEDS: Carvedilol TAB* 25 MG PO SCH (08:39)
[2019-04-05] MEDS: CMCS: OMEGA-3 FATTY ACIDS (NF) 1,000 MG CAP PO SCH (08:39)
[2019-04-05] MEDS ORDERED: Torsemide TAB* 20 MG PO SCH (09:00)
[2019-04-05] MEDS: Insulin GLARGINE(*) 1 UNITS UNIT SUBCUT SCH (09:36)
--- NOTE | 2019-04-05 09:54 | ECHO ---
*[facility]* [place] [address] Fax #: [phone] Transthoracic Echocardiogram Patient: Brock Coronel : 1950 Study Date: 04/05/2019 Age: 69 Gender: M HR: 62 bpm Height: 73 in /185.4 cm BSA: 2.41 m^2 Weight: 260.5 lb /118.4 kg BMI: 34.4 kg/m^2 *Yardage Control Operator: * Nikia Liang [facility] *Referring Physician: * Jamie Prado *Reading Physician: * Mary Egan MD Indications: Congestive Heart Failure. History: Atrial flutter. Congestive heart failure. Risk factors: Hypertension. Diabetes mellitus. Dyslipidemia. Conclusions Summary: - Left ventricle: The cavity size is normal. Wall thickness is mildly to moderately increased. Systolic function is normal. The estimated ejection fraction is 55-60%. Doppler parameters are consistent with elevated ventricular end-diastolic filling pressure. - Right ventricle: Systolic function is normal. - Left atrium: The atrium is severely dilated. - Right atrium: The atrium is moderately dilated. - Mitral valve: There is mild regurgitation. - Aortic valve: The findings are consistent with mild stenosis. The mean systolic gradient is 12.0 mm Hg. The valve area by the velocity-time integral method is 1.80 cm^2. The valve area by the peak velocity method is 1.92 cm^2. - No prior echocardiogram to compare. Study data: Transthoracic echocardiogram. Procedure: Transthoracic echocardiography was performed. Image quality was fair. Complete 2D, spectral Doppler, and color flow Doppler. Location: Bedside. Patient status: Inpatient. Patient room number: 433. Rhythm: Normal sinus rhythm. Findings Left ventricle: The cavity size is normal. Wall thickness is mildly to moderately increased. Systolic function is normal. The estimated ejection fraction is 55-60%. Wall motion is normal; there are no regional wall motion abnormalities. Doppler parameters are abnormal, possible pseudonormal filling. Doppler parameters are consistent with elevated ventricular end-diastolic filling pressure. Right ventricle: The cavity size is normal. Systolic function is normal. Left atrium: The atrium is severely dilated. Right atrium: The atrium is moderately dilated. Mitral valve: The leaflets are normal thickness. There is no evidence of stenosis. There is mild regurgitation. Aortic valve: The annulus is mildly calcified. The valve is probably trileaflet. The leaflets are mildly thickened and mildly calcified. The findings are consistent with mild stenosis. There is no significant regurgitation. Tricuspid valve: The leaflets are normal thickness. There is no evidence of stenosis. There is no significant regurgitation. Pulmonic valve: The leaflets are normal thickness. There is no evidence of stenosis. There is trace regurgitation. Aorta: Aortic arch: The aortic arch is poorly visualized. The aortic root appears normal. Pericardium: There is no significant pericardial effusion. Pulmonary arteries: Not well visualized. Systolic pressure can not be accurately estimated. Systemic veins: Inferior vena cava: Not well visualized. Measurements Left ventricle Value Ref Aortic valve Value Ref EDEN, LAX 5.3 cm 4.2 - 5.8 Toni diam, ED 2.7 cm ---- ESD, LAX 3.1 cm 2.5 - 4.0 Peak v, S 2.3 m/sec ---- FS, LAX 42 % 25 - 43 VTI, S 54.0 cm ---- PW, ED, LAX (H) 1.2 cm 0.6 - 1.0 Accel time 67 ms ---- EF 72 % 52 - 72 Mean grad, S 12.0 mm Hg ---- E', lat toni, TDI (L) 8.0 cm/sec >=10.0 Peak grad, S 22.0 mm Hg --- - E/e', lat toni, 15 LVOT/AV, VTI ratio 0.41 ---- TDI LYDIA, VTI 1.80 cm^2 ---- E', med toni, TDI 9.5 cm/sec >=7.0 LYDIA, Vmax 1.92 cm^2 --- - E/e', med toni, 13 TDI Mitral valve Value Ref E', avg, TDI 8.8 cm/sec Peak E 1.21 m/sec ---- E/e', avg, TDI 14 <=14 Peak A 0.48 m/sec --- - Decel time 219 ms ---- LVOT Value Ref PHT 83 ms ---- Diam, S 2.37 cm Mean grad, D 2.0 mm Hg ---- Peak araceli, S 1 m/sec Peak grad, D 8.0 mm Hg ---- VTI, S 22.0 cm Peak E/A ratio 2.5 ---- Peak grad, S 4 mm Hg MVA, PHT 2.7 cm^2 ---- Mean grad, S 2 mm Hg Pulmonic valve Value Ref Ventricular septum Value Ref Peak v, S 1.26 m/sec ---- IVS, ED (H) 1.6 cm 0.6 - 1.0 Peak grad, S 6.0 mm Hg ---- Right ventricle Value Ref Aortic root Value Ref EDEN, LAX 2.1 cm Root diam 3.3 cm <4.4 EDEN minor ax, A4C (H) 4.0 cm 1.9 - 3.5 mid Ascending aorta Value Ref AAo AP diam, S 3.0 cm ---- Left atrium Value Ref AP dim, ES (H) 4.40 cm 3.00 - Decending aorta Value Ref 4.00 Tana peak araceli 0.99 m/sec ---- ML dim, A4C 5.6 cm SI dim, A4C 7.6 cm Vol/bsa, ES, A/L (H) 62 ml/m^2 16 - 34 Right atrium Value Ref SI dim, ES (H) 6.1 cm 3.4 - 5.3 ML dim, ES, A4C (H) 4.6 cm 2.6 - 4.4 Estimated RAP 8 mm Hg Legend: (L) and (H) cha values outside specified reference range. Prepared and electronically signed by Mary Egan MD 04/05/2019 09:53
[2019-04-05] MEDS ORDERED: Iron Sucrose* 200 MG in NS 0.9% 100 ML* 100 ML IVPB ONE (11:47)
[2019-04-05 13:44] LABS: Hematocrit 26 % (42-52); Hemoglobin 8.5 g/dL (14.0-18.0)
[2019-04-05] MEDS: Atorvastatin* 40 MG TAB PO SCH (16:38)
[2019-04-05 17:03] VITALS: BP 139/50
--- NOTE | 2019-04-05 21:24 | DS ---
CC: Dr. Diego; Dr. Taveras * DISCHARGE SUMMARY: DATE OF ADMISSION: 04/03/19 DATE OF DISCHARGE: 04/05/19 PROVIDER: PETE De Paz. CONSULTING ACTIVATED SLUDGE ATTENDANT: Dr. Diego. PRIMARY CARE PROVIDER: Dr. Taveras. ATTENDING PROVIDER: Dr. Anne * (DICTATED BY PETE DE PAZ) PRIMARY DIAGNOSES: 1. 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 2. Type 2 acs-BA-gcwwkxiev myocardial infarction in the setting of acute blood loss anemia. 3. Iron deficiency anemia. SECONDARY DIAGNOSES: 1. Atrial flutter, on Xarelto. 2. History of rectosigmoid polyp removal. 3. Chronic kidney disease. 4. Diabetes mellitus type 2. 5. Hypertension. 6. Hyperlipidemia. 7. Hypothyroidism. PROCEDURES: EGD with Dr. Diego on 04/05/19 with findings of AVM in the duodenum; otherwise, has a small hiatal hernia. STUDIES WHILE IN THE HOSPITAL: Transthoracic echocardiogram: Systolic function is normal. No regional wall motion abnormalities. Doppler parameters are abnormal, possible pseudonormal filling. PERTINENT LAB DATA: Hemoglobin on day of admission 6.6, hemoglobin on day of discharge 8.5. Ferritin on date of arrival 11.6, percent saturation 5, TIBC 43 , iron 24. HISTORY OF PRESENT ILLNESS/HOSPITAL COURSE: Brock Coronel is a 69-year-old white male with past medical history significant for diabetes, hypertension, hyperlipidemia, atrial flutter; on Xarelto, and chronic kidney disease who presents to the emergency department by his flute polisher's office due to abnormal hemoglobin. For further information regarding his admission, please see admitting history and physical dictated by Dr. Darrion Benjamin on 04/03/19. The patient received a total of 3 units of PRBCs during his hospital stay and he was found to have a mildly elevated troponin to 0.04; however, his EKG was without ischemic changes. This was thought to be due to ischemic strain in the setting of his severe anemia. He had a stool occult, which was positive for blood and he later had an EGD with Dr. Diego which demonstrated an AVM, which he cauterized. Additionally, during his hospital stay, he received 2 doses on 2 separate days of IV iron sucrose 200 mg and otherwise, his home medications were continued, other than his aspirin and Xarelto, which were stopped in the setting of GI bleed. On the day of discharge, the patient is feeling well. He has no chest pain, difficulty breathing nor dizziness or lightheadedness, abdominal pain, nausea, or vomiting. He had not had a bowel movement since the day of admission and therefore, was unable to report stool color. PHYSICAL EXAMINATION: General: Elderly obese male, sitting in hospital chair, appearing comfortable, in no acute distress. Head: Normocephalic, atraumatic. Eyes: PERRL. Sclerae anicteric. ENT: Mucous membranes moist. Neck: Supple without JVD. Lungs: Clear to auscultation throughout. Cardio: Regular rate and rhythm without murmurs, rubs, or gallops. Abdomen: Soft, nontender, nondistended. Extremities: No clubbing, cyanosis, or edema. Neuro: The patient is alert and oriented x3. No focal deficits. Able to move all extremities. Normal gait. DISCHARGE PLAN: Diet: Carbohydrate-consistent diet. Activity: Return to normal activity as tolerated. The patient is to follow up with Dr. Diego this week. His office will schedule that appointment. I advised that he follow up with his primary care within 2 to 3 days to have repeat blood counts. Dr. Diego advised the patient to take a Women's Centrum vitamin daily for appropriate iron supplementation. If the patient does not have improved anemia in the superintendent terminal , then a full 325 mg of ferrous sulfate twice a day would be recommended. The patient's home Xarelto and aspirin should be held until Dr. Diego has followup with the patient. The patient was advised of the risks of stroke without Xarelto in the setting of atrial flutter; however, the patient did have normal sinus rhythm on his EKG on admission and did have normal rhythm on exam today. The patient's flute polisher is currently monitoring the patient's heart rate for 30 days. The patient should follow up with his flute polisher in the 30 days to determine if Xarelto is even needed at this point and it may be of benefit for the patient to have this discontinued considering he likely has more AVMs throughout his GI tract. The patient was advised to return to the emergency department if he notices bright red blood or black stools and if he experiences lightheadedness or dizziness, chest pain, or shortness of breath. MEDICATIONS: Continued Home Medications: 1. Vitamin D 2000 units p.o. daily. 2. Carvedilol 25 mg p.o. b.i.d. 3. Ramipril 10 mg p.o. daily. 4. Potassium 20 mEq p.o. daily. 5. Synthroid 200 mcg p.o. daily. 6. Lipitor 40 mg p.o. daily. 7. Metformin 500 mg p.o. daily. 8. Fish oil 1 cap p.o. daily. 9. Insulin glargine 300 units subcu b.i.d. 10. Regular 70/30 insulin 35 units subcu daily. 11. Insulin lispro 35 units subcu b.i.d. 12. Torsemide 20 mg p.o. daily. New Medication: 1. Women's Centrum multivitamin 1 tab p.o. daily. Discontinued Home Medications: 1. Xarelto 20 mg p.o. daily. 2. Aspirin 81 mg p.o. daily. CONDITION ON DISCHARGE: Stable. DISPOSITION: Home. TIME SPENT: Approximately 50 minutes were spent on this discharge, approximately half this time was spent at the bedside. PETE DE PAZ [id number]/[facility] #: [id number] MTDD
== END 2019-04-05 16:41 | disposition home or self-care (01) | DRG 377 ==
LOC: ED 17:10 → ICU 21:01 → MEDTELE 04-04 12:51
PROVIDERS: ADMIT Internal Medicine; ATTEND Internal Medicine
PROC: 30233N1 Transfusion of Nonautologous Red Blood Cells into Peripheral Vein, Percutaneous Approach (ICD-10-PCS; principal; 2019-04-03)
PROC: 0W3P8ZZ Control Bleeding in Gastrointestinal Tract, Via Natural or Artificial Opening Endoscopic (ICD-10-PCS; 2019-04-04)
PROC: 0DD68ZX Extraction of Stomach, Via Natural or Artificial Opening Endoscopic, Diagnostic (ICD-10-PCS; 2019-04-04)
DX: K55.21 Angiodysplasia of colon with hemorrhage (principal); I21.A1 Myocardial infarction type 2; I48.92 Unspecified atrial flutter; I13.0 Hypertensive heart and chronic kidney disease with heart failure and stage 1 through stage 4 chronic kidney disease, or unspecified chronic kidney disease; D62 Acute posthemorrhagic anemia; E11.22 Type 2 diabetes mellitus with diabetic chronic kidney disease; I50.9 Heart failure, unspecified; E66.01 Morbid (severe) obesity due to excess calories; N18.3 Chronic kidney disease, stage 3 (moderate); I45.10 Unspecified right bundle-branch block; D50.9 Iron deficiency anemia, unspecified; K44.9 Diaphragmatic hernia without obstruction or gangrene; E78.5 Hyperlipidemia, unspecified; E03.9 Hypothyroidism, unspecified; Z68.36 Body mass index [BMI] 36.0-36.9, adult; Z79.01 Long term (current) use of anticoagulants; Z79.84 Long term (current) use of oral hypoglycemic drugs; Z79.82 Long term (current) use of aspirin; Z79.4 Long term (current) use of insulin; Z79.899 Other long term (current) drug therapy; Z82.49 Family history of ischemic heart disease and other diseases of the circulatory system; Z87.891 Personal history of nicotine dependence
CPT/HCPCS: 36415; 71045; 76705; 80053; 81003; 82270; 82607; 82728; 82746; 83540; 83550; 83605; 84484; 85014; 85018; 85025; 85610; 86850; 86900; 86901; 86922; 87040; 87077; 87641; 93005; 93306; 99156; 99284; A9270-GY; J1756; J1940; J2250; J3010; P9040

== ENCOUNTER 2022-04-27 11:40 | Observation (INO) ==
[2022-04-27 12:48] LABS: Hematocrit 20 % (42-52); Hemoglobin 6.5 g/dL (14.0-18.0); Mean Corpuscular HGB Conc 32 g/dL (31-36); Mean Corpuscular Hemoglobin 31 pg (27-31); Mean Corpuscular Volume 95 fL (80-94); Mean Platelet Volume 8.3 fL (7.4-10.4); Platelet Count 161 10^3/uL (150-450); Red Blood Count 2.11 10^6 /uL (4.18-5.48); Red Cell Distribution Width 18 % (10-15); White Blood Count 5.1 10^3/uL (3.5-10.8)
[2022-04-27 13:31] LABS: Anisocytosis 2+; Polychromasia 1+
[2022-04-27 13:32] LABS: ABS Eosinophils 0.1 10^3/ul (0-0.6); ABS Lymphocytes 1.2 10^3/ul (1.0-4.8); ABS Monocytes 0.4 10^3/ul (0-0.8); ABS Neutrophils 3.3 10^3/ul (1.5-7.7); Albumin 4.3 g/dL (3.2-5.2); Albumin/Globulin Ratio 1.7 (1-3); Calcium 9.3 mg/dL (8.6-10.3); Eosinophil % 2.2 %; Globulin 2.6 g/dL (2-4); Lymphocyte % 24.3 %; Nucleated Red Blood Cells % 0.1; Potassium 4.5 mmol/L (3.5-5.0); Total Bilirubin 0.6 mg/dL (0.2-1.0); Total Protein 6.9 g/dL (6.4-8.9); eGFR CKD-EPI 18.1 (>60)
[2022-04-27 14:32] LABS: High Sensitivity Troponin 1 Hr 124 pg/mL (<20)
[2022-04-27] MEDS ORDERED: Pantoprazole VIAL 40 MG VIAL IV ONE (15:20)
[2022-04-27] MEDS ORDERED: Dextrose 50% Syringe 50 ml 25 GM/50 ML SYRINGE IV PUSH PRN (17:21)
[2022-04-27 18:52] LABS: ABS Eosinophils 0.1 10^3/ul (0-0.6); ABS Lymphocytes 1.5 10^3/ul (1.0-4.8); ABS Monocytes 0.4 10^3/ul (0-0.8); ABS Neutrophils 3.9 10^3/ul (1.5-7.7); Hematocrit 23 % (42-52); Hemoglobin 7.4 g/dL (14.0-18.0); Mean Corpuscular HGB Conc 32 g/dL (31-36); Mean Corpuscular Hemoglobin 30 pg (27-31); Mean Corpuscular Volume 93 fL (80-94); Mean Platelet Volume 8.1 fL (7.4-10.4); Platelet Count 149 10^3/uL (150-450); Red Blood Count 2.48 10^6 /uL (4.18-5.48); Red Cell Distribution Width 19 % (10-15); White Blood Count 5.9 10^3/uL (3.5-10.8)
[2022-04-27] MEDS: Insulin GLARGINE 100 un/ml 10 ml VIAL SUBCUT SCH (20:25)
[2022-04-27] MEDS: Pantoprazole 80 mg in NS BAG 80 MG/250 ML BAG IV SCH (22:09)
[2022-04-28] MEDS: Pantoprazole 80 mg in NS BAG 80 MG/250 ML BAG IV SCH (00:19)
[2022-04-28 06:13] LABS: ABS Eosinophils 0.1 10^3/ul (0-0.6); ABS Lymphocytes 1.3 10^3/ul (1.0-4.8); ABS Monocytes 0.5 10^3/ul (0-0.8); ABS Neutrophils 4.1 10^3/ul (1.5-7.7); Eosinophil % 2.4 %; Hematocrit 24 % (42-52); Lymphocyte % 21.4 %; Mean Corpuscular HGB Conc 33 g/dL (31-36); Mean Corpuscular Hemoglobin 29 pg (27-31); Mean Corpuscular Volume 89 fL (80-94); Mean Platelet Volume 7.8 fL (7.4-10.4); Platelet Count 144 10^3/uL (150-450); Red Blood Count 2.74 10^6 /uL (4.18-5.48); Red Cell Distribution Width 21 % (10-15); White Blood Count 6.1 10^3/uL (3.5-10.8)
[2022-04-28 07:14] LABS: Albumin 4.2 g/dL (3.2-5.2); Albumin/Globulin Ratio 1.8 (1-3); Calcium 9.2 mg/dL (8.6-10.3); Globulin 2.4 g/dL (2-4); Magnesium 2.7 mg/dL (1.9-2.7); Potassium 4.5 mmol/L (3.5-5.0); Total Bilirubin 1.3 mg/dL (0.2-1.0); Total Protein 6.6 g/dL (6.4-8.9); eGFR CKD-EPI 19.4 (>60)
[2022-04-28] MEDS ORDERED: Pantoprazole 80 mg in NS BAG 80 MG/250 ML BAG IV SCH (08:00)
[2022-04-28] MEDS: Insulin GLARGINE 100 un/ml 10 ml VIAL SUBCUT SCH ×3 (09:06→20:40)
[2022-04-28] MEDS ORDERED: Polyethylene Glycol 3350 17 GM PACKET PO PRN (11:03)
[2022-04-28] MEDS ORDERED: fentaNYL 100 mcg/2 ml 50 MCG/ML VIAL ONE (14:04)
[2022-04-28] MEDS ORDERED: Midazolam 10 mg/10 ml VIAL 1 mg/ml 10 ml VIAL (10 mg) ONE (14:04)
[2022-04-28] MEDS ORDERED: Senna TAB 8.6 mg TAB PO PRN (17:04)
[2022-04-29 08:06] LABS: ABS Eosinophils 0.2 10^3/ul (0-0.6); ABS Lymphocytes 1.5 10^3/ul (1.0-4.8); ABS Monocytes 0.5 10^3/ul (0-0.8); ABS Neutrophils 3.8 10^3/ul (1.5-7.7); Eosinophil % 2.7 %; Hematocrit 23 % (42-52); Hemoglobin 7.9 g/dL (14.0-18.0); Lymphocyte % 25.7 %; Mean Corpuscular HGB Conc 34 g/dL (31-36); Mean Corpuscular Hemoglobin 30 pg (27-31); Mean Corpuscular Volume 88 fL (80-94); Mean Platelet Volume 7.7 fL (7.4-10.4); Platelet Count 145 10^3/uL (150-450); Red Blood Count 2.61 10^6 /uL (4.18-5.48); Red Cell Distribution Width 21 % (10-15)
[2022-04-29 08:23] LABS: Albumin 4.3 g/dL (3.2-5.2); Albumin/Globulin Ratio 1.8 (1-3); Calcium 9.5 mg/dL (8.6-10.3); Globulin 2.4 g/dL (2-4); Magnesium 2.6 mg/dL (1.9-2.7); Phosphorus 4.2 mg/dL (2.5-5.0); Potassium 4.4 mmol/L (3.5-5.0); Total Protein 6.7 g/dL (6.4-8.9); eGFR CKD-EPI 20.9 (>60)
[2022-04-29] MEDS: Insulin GLARGINE 100 un/ml 10 ml VIAL SUBCUT SCH (08:47)
[2022-04-29 12:44] VITALS: BP 120/56
== END 2022-04-29 13:30 | disposition home or self-care (01) ==
LOC: ED 11:40 → EDHOLD 11:40 → SUATTDRO 16:42 → EDHOLD 18:12 → MEDTELE 18:30
PROVIDERS: ADMIT Student in an Organized Health Care Education/Training Program; ATTEND Internal Medicine

== ENCOUNTER 2022-06-16 14:32 | Inpatient (IN) ==
[2022-06-16 15:23] LABS: ABS Eosinophils 0.1 10^3/ul (0-0.6); ABS Lymphocytes 1.2 10^3/ul (1.0-4.8); ABS Monocytes 0.4 10^3/ul (0-0.8); ABS Neutrophils 3.5 10^3/ul (1.5-7.7); Hematocrit 20 % (42-52); Hemoglobin 6.6 g/dL (14.0-18.0); Lymphocyte % 22.7 %; Mean Corpuscular HGB Conc 32 g/dL (31-36); Mean Corpuscular Hemoglobin 31 pg (27-31); Mean Corpuscular Volume 96 fL (80-94); Mean Platelet Volume 8.7 fL (7.4-10.4); Platelet Count 114 10^3/uL (150-450); Red Blood Count 2.11 10^6 /uL (4.18-5.48); Red Cell Distribution Width 20 % (10-15); White Blood Count 5.2 10^3/uL (3.5-10.8)
[2022-06-16 15:32] LABS: Activated Partial Thrombo Time 30.2 seconds (26.0-38.0); INR 1.1 (0.89-1.11)
[2022-06-16 16:19] LABS: Albumin/Globulin Ratio 2.1 (1-3); Globulin 1.9 g/dL (2-4); Potassium 3.5 mmol/L (3.5-5.0); Total Bilirubin 0.7 mg/dL (0.2-1.0); Total Protein 5.9 g/dL (6.4-8.9); eGFR CKD-EPI 19.6 (>60)
[2022-06-16] MEDS ORDERED: Famotidine IV 10 MG/ML 2 ml VIAL (20 mg) IV SLOW PU ONE (18:13)
[2022-06-16] MEDS ORDERED: Iron Sucrose 20 MG/ML 5 ML VIAL IV PUSH ONE (18:15)
[2022-06-16] MEDS ORDERED: Iron Sucrose 200 MG in NS 0.9% 100 ml IVPB ONE (20:00)
[2022-06-16] MEDS ORDERED: Pantoprazole VIAL 40 MG VIAL IV SCH (21:00)
[2022-06-16] MEDS ORDERED: Lactated Ringers 1000 ml BAG 1,000 ML IV SCH (21:00)
[2022-06-17 01:08] LABS: Hematocrit 23 % (42-52); Hemoglobin 7.3 g/dL (14.0-18.0)
[2022-06-17 06:45] LABS: Hematocrit 22 % (42-52); Hemoglobin 7.1 g/dL (14.0-18.0)
[2022-06-17 07:08] LABS: Calcium 8.8 mg/dL (8.6-10.3); Potassium 3.5 mmol/L (3.5-5.0); eGFR CKD-EPI 19.3 (>60)
[2022-06-17] MEDS ORDERED: Pantoprazole VIAL 40 MG VIAL IV SCH (09:00)
[2022-06-17] MEDS: NS 0.45% 1000 ml BAG 1,000 ML IV SCH ×2 (09:22→16:14)
[2022-06-17] MEDS ORDERED: Influenza vaccine *QUAD* *2022-23* 0.5 ML SYRINGE IM ONE (10:00)
[2022-06-17] MEDS ORDERED: fentaNYL 100 mcg/2 ml 50 MCG/ML VIAL ONE (12:41)
[2022-06-17] MEDS ORDERED: Midazolam 5 mg/5 ml VIAL 1 mg/ml 5 ml VIAL (5 mg) ONE (12:41)
[2022-06-17] MEDS ORDERED: Dextrose 50% Syringe 50 ml 25 GM/50 ML SYRINGE IV PUSH PRN (14:49)
[2022-06-17 15:15] LABS: Hematocrit 23 % (42-52); Hemoglobin 7.2 g/dL (14.0-18.0)
[2022-06-17 15:42] LABS: Calcium 8.6 mg/dL (8.6-10.3); Potassium 3.5 mmol/L (3.5-5.0); eGFR CKD-EPI 20.5 (>60)
[2022-06-17] MEDS ORDERED: Insulin GLARGINE 100 un/ml 10 ml VIAL SUBCUT ONE (15:47)
[2022-06-17] MEDS ORDERED: PEG 3000 GI LAVAGE 1 GALLON PO ONE (16:00)
[2022-06-17 16:39] LABS: Ferritin 117.6 ng/mL (24-336)
[2022-06-17] MEDS ORDERED: Furosemide 40 mg/4 ml IV VIAL IV SLOW PU ONE (18:20)
[2022-06-17 20:59] LABS: Hematocrit 23 % (42-52); Hemoglobin 7.7 g/dL (14.0-18.0)
[2022-06-18] MEDS ORDERED: NS 0.45% 1000 ml BAG 1,000 ML IV SCH (00:01)
[2022-06-18 01:39] LABS: Hematocrit 22 % (42-52)
[2022-06-18 02:14] LABS: Calcium 8.3 mg/dL (8.6-10.3); Potassium 3.2 mmol/L (3.5-5.0); eGFR CKD-EPI 21.4 (>60)
[2022-06-18 05:09] LABS: Magnesium 2.3 mg/dL (1.9-2.7)
[2022-06-18] MEDS: KCL 20 MEQ/100 ML IVPREMIX 20 MEQ/100 ML BAG IV SCH ×3 (05:47→13:59)
[2022-06-18] MEDS ORDERED: PEG 3000 GI LAVAGE 1 GALLON PO ONE (06:00)
[2022-06-18] MEDS: Insulin GLARGINE 100 un/ml 10 ml VIAL SUBCUT SCH ×2 (11:14→22:18)
[2022-06-18 11:57] LABS: Hematocrit 22 % (42-52)
[2022-06-18 12:50] LABS: Calcium 8.5 mg/dL (8.6-10.3); Potassium 3.3 mmol/L (3.5-5.0); eGFR CKD-EPI 22.5 (>60)
[2022-06-18] MEDS ORDERED: fentaNYL 100 mcg/2 ml 50 MCG/ML VIAL ONE (14:37)
[2022-06-18] MEDS ORDERED: Midazolam 2 mg/2 ml VIAL 1 mg/ml 2 ml VIAL (2 mg) ONE ×2 (14:37→14:44)
[2022-06-18] MEDS ORDERED: Furosemide 40 mg/4 ml IV VIAL IV SLOW PU ONE ×2 (17:33→23:00)
[2022-06-18] MEDS ORDERED: Potassium Chlor 20 meq TAB.ER PO ONE (17:40)
[2022-06-19 07:57] LABS: ABS Eosinophils 0.1 10^3/ul (0-0.6); ABS Lymphocytes 0.9 10^3/ul (1.0-4.8); ABS Monocytes 0.5 10^3/ul (0-0.8); Eosinophil % 1.9 %; Hematocrit 26 % (42-52); Hemoglobin 8.8 g/dL (14.0-18.0); Lymphocyte % 13.5 %; Mean Corpuscular HGB Conc 34 g/dL (31-36); Mean Corpuscular Hemoglobin 32 pg (27-31); Mean Corpuscular Volume 93 fL (80-94); Mean Platelet Volume 8.4 fL (7.4-10.4); Platelet Count 102 10^3/uL (150-450); Red Blood Count 2.79 10^6 /uL (4.18-5.48); Red Cell Distribution Width 19 % (10-15); White Blood Count 6.6 10^3/uL (3.5-10.8)
[2022-06-19 08:41] LABS: Calcium 8.3 mg/dL (8.6-10.3); Potassium 3.4 mmol/L (3.5-5.0); eGFR CKD-EPI 24.3 (>60)
[2022-06-19] MEDS: Insulin GLARGINE 100 un/ml 10 ml VIAL SUBCUT SCH (09:06)
[2022-06-19] MEDS ORDERED: Potassium Chlor 20 meq TAB.ER PO ONE (09:38)
[2022-06-19 11:49] LABS: Corrected Retic Count 3.2 % (0.5-1.5); Hematocrit for Retic CNT 27 % (42-52); Immature Retic Fraction 0.62; RBC Retic Count 2.91 10^6/uL (4.18-5.48)
[2022-06-19 12:22] VITALS: BP 130/52
== END 2022-06-19 15:44 | disposition home or self-care (01) | DRG 378 ==
LOC: ED 14:32 → EDHOLD 14:32 → SUATTDRO 20:02 → EDHOLD 23:49 → SSU 23:53 → SUATTDRO 06-17 15:44
PROVIDERS: ADMIT Hospitalist; ATTEND Internal Medicine